=== PATIENT | female | born 1980 | race Caucasian/White ===

== ENCOUNTER → 2024-06-14 12:22 | Outpatient (REF) | payer BC, SELFPAY | LOC: HWWDC 12:22 | PROVIDERS: ATTENDING PHYSICIAN Nurse Practitioner Family | DX: Z12.31 Encounter for screening mammogram for malignant neoplasm of breast (principal) | CPT/HCPCS: 77063; 77067 ==

== ENCOUNTER → 2024-07-01 08:30 | Outpatient (REF) | payer BC, SELFPAY | LOC: WDC 08:30 | PROVIDERS: ATTENDING PHYSICIAN Nurse Practitioner Family | DX: R92.8 Other abnormal and inconclusive findings on diagnostic imaging of breast (principal) | CPT/HCPCS: 76642 ==

== ENCOUNTER → 2024-07-02 08:50 | Outpatient (REF) | payer BC, SELFPAY ==
--- NOTE | 2024-07-02 14:44 | OID.BR.INTR ---
COLTEND Breast Navigator - Initial
- -
Date of Contact: 07/02/24
Met with patient. Patient given written information on navigator services available at [facility]. Will follow up as needed per protocol.
== END ==
LOC: WDC 08:50
PROVIDERS: ATTENDING PHYSICIAN Nurse Practitioner Family
DX: N63.12 Unspecified lump in the right breast, upper inner quadrant (principal)
CPT/HCPCS: 88305; 19083; 77065; A4648

== ENCOUNTER → 2025-03-19 14:58 | Outpatient (REF) | payer BC, SELFPAY | LOC: WDC 14:58 | PROVIDERS: ATTENDING PHYSICIAN Nurse Practitioner Family | DX: R92.8 Other abnormal and inconclusive findings on diagnostic imaging of breast (principal) | CPT/HCPCS: 76642 ==